=== PATIENT | female | born 1990 | race Hispanic/Latino ===

== ENCOUNTER 2020-11-19 08:39 | Emergency (ER) | payer SELFPAY ==
[2020-11-19 08:46] VITALS: BP 124/92; PULSE 62; RESP 18; TEMP 37; O2SAT 100
--- NOTE | 2020-11-19 08:47 | ED.ABDPAIN ---
HPI - Abdominal Pain General Chief Complaint: Abdominal Pain Stated Complaint: Abdominal Pain Time Seen by Provider: 11/19/20 08:47 Source: patient Mode of arrival: ambulatory Limitations: no limitations History of Present Illness HPI narrative: 30-year-old female presents to the [facility] with complaints of RLQ, suprapubic pain, nausea, headache since last night. Vomited 3 times since last night. Also reports diarrhea this morning. no treatment prior to arrival. Denies fevers and chest pain. Denies any past medical or surgical history Related Data Home Medications Medication Instructions Recorded Confirmed No Home Medications 11/19/20 11/19/20 Allergies Allergy/AdvReac Type Severity Reaction Status Date / Time No Known Allergies Allergy Verified 11/19/20 08:52 Review of Systems Review of Systems: All systems reviewed & are unremarkable except as noted in HPI and below Constitutional: Constitutional: Reports no additional constitutional complaints, Denies chills and Denies fever(s) Eyes: Eyes: Reports no additional eye complaints ENT: Reports system reviewed and no additional complaints, except as documented Cardiovascular: Cardiovascular: Reports no additional cardiovascular complaints Respiratory: Respiratory: Reports no additional respiratory complaints Gastrointestinal: Gastrointestinal: Reports as per HPI, Reports abdominal pain, Denies bloating, Denies constipation, Denies diarrhea, Reports nausea and Denies vomiting Genitourinary: Genitourinary: Reports no additional female genitourinary complaints, Denies dysuria and Denies flank pain Musculoskeletal: Musculoskeletal: Reports no additional musculoskeletal complaints, Denies back pain, Denies arthralgias and Denies joint swelling Integumentary/Breasts: Skin/Breast: Reports system reviewed and no additional complaints, except as docu Neurologic: Reports system reviewed and no additional complaints, except as documented Psychiatric: Psychiatric: Reports no additional psychiatric complaints Allergic/Immunologic: Allergic/Immunologic: Reports no additional allergic/immunologic complaints [facility] Past Medical History Medical History (Updated 11/19/20 @ 09:25 by Meseret Young) Well adult Social History Social History Gender identity (if verbalized by the patient): Female Comments Patient denies any past medical or surgical history. At the time of my signature, I reviewed and agree with the nursing past medical, surgical, social, and family history. There is no relevant family history pertinent to the patient complaint. Exam Const: General: healthy appearing, no acute distress and alert Nutritional Appearance: well nourished Orientation/consciousness: patient oriented x3 Limitations: no limitations HENMT: Head: normal to inspection Eyes: Pupils: Equal, round and reactive pupils present Neck: Neck: normal visual inspection, no lymphadenopathy and no meningeal signs Chest: Chest palpation & inspection: normal inspection of the chest Resp: Effort & Inspection: normal respiratory effort and no use of accessory muscles Auscultation: clear to auscultation bilaterally, no crackles, no rales, no rhonchi and no wheezes Cardio: Rate: regular rate Rhythm: regular rhythm GI: GI Palp: Yes Soft to palpation and Yes Tenderness to palpation present (GI) (Right lower, suprapubic, left lower) Auscultation: Hyperactive bowel sounds present : General: Yes no CVA tenderness Back/Spine/Pelvis: Back: no CVA tenderness Skin: General skin exam: normal color Rashes: no rashes Neuro: General: patient oriented x3, no meningeal signs and no focal motor deficits Speech: normal speech Gait exam (Neuro): Normal gait present Extrem: General: normal to inspection and no pedal edema Psych: Appearance: grossly normal and well kempt Mental Status: mental status grossly normal Affect: normal affect Attitu
== END 2020-11-19 09:09 | disposition short-term general hospital (02) ==
LOC: EXPCOLL 08:44
PROVIDERS: Emergency Provider Nurse Practitioner
DX: R10.31 Right lower quadrant pain (principal); R10.32 Left lower quadrant pain
CPT/HCPCS: 81003; 81025; 99212; G0463

== ENCOUNTER 2020-11-19 09:34 | Emergency (ER) | payer SELFPAY ==
--- NOTE | ~2020-11-19 | XR_ITS ---
EXAMINATION: XR chest 1V portable 11/19/2020 13:37 INDICATION: Cough and sore throat PROCEDURE: AP portable chest COMPARISON: No prior studies for comparison. FINDINGS: The lungs are clear. The cardiomediastinal silhouette is within normal limits. There are no pleural effusions. There is no pneumothorax suspected. IMPRESSION: 1: NO ACUTE CARDIOPULMONARY DISEASE. Reviewed, dictated and finalized at location A.
--- NOTE | ~2020-11-19 | CT_ITS ---
EXAMINATION: CT abdomen pelvis w con DATE: 11/19/2020 11:17 INDICATION: Right lower quadrant abdominal pain TECHNIQUE: Computed tomography (CT) of the abdomen and pelvis was performed with 100 mL Omnipaque-350 intravenous contrast. Automated exposure control and iterative reconstruction technique were employe d. The dose-length product was 492.41 mGy-cm. COMPARISON: None FINDINGS: Lung bases are clear. Heart size is normal. No pericardial or pleural effusion. Cholecystectomy clips at the gallbladder fossa. Liver, spleen, pancreas, left adrenal gland and bilateral kidneys are norm al. 9 mm right adrenal adenoma which in the absence of known history of malignancy is most likely an adenoma. Bowels including the appendix are normal. A couple nabothian cysts at the cervix, the larger measuring 1.4 cm . Anteverted uterus is otherwise unremarkable. Bladder and right adnexa are normal. 4.1 cm left adnexal cyst/follicle. Small amount of likely physiologic free fluid in the pelvis. No p athologically enlarged abdominal or pelvic lymphadenopathy. Bones are unremarkable. IMPRESSION: 1. 4.1 cm left adnexal cyst/follicle and small amount of likely physiologic free fluid in the pelvis. 2. No other acute intra-abdominal/pelvic process. Specifically the appendix is normal. Reviewed, dictated and finalized at location A. IMPRESSION: 1. 4.1 cm left adnexal cyst/follicle and small amount of likely physiologic to e fluid in the pelvis. 2. No other acute intra-abdominal/pelvic process. Specifically the appendix is normal.
[2020-11-19 10:22] VITALS: BP 124/68; PULSE 55; RESP 18; TEMP 36.7; O2SAT 99
--- NOTE | 2020-11-19 10:39 | ED.ABDPAIN ---
HPI - Abdominal Pain General Chief Complaint: Abdominal Pain Stated Complaint: RLQ ABD PAIN, N/V/D Time Seen by Provider: 11/19/20 10:36 Source: RN notes reviewed History of Present Illness HPI narrative: Patient presents to emergency department from urgent care for right lower quadrant bowel pain. Patient states symptoms began last night. Pain is located right lower quadrant and does not radiate states associated nausea vomiting diarrhea. States she does not take anything for the pain today she denies any fevers or chills chest pain shortness of breath or any other symptoms. Patient denies any chance of . Patient states she is also had a mild nonspecific cough as well as sore throat intermittent headaches for the past 1 week states she has had both of her Covid vaccinations reports mild rhinorrhea as well Related Data Allergies Allergy/AdvReac Type Severity Reaction Status Date / Time No Known Allergies Allergy Verified 11/19/20 10:45 Review of Systems Review of Systems: Narrative: Gen.: Denies fevers or chills ENT: Reports congestion Respiratory: Denies shortness of breath reports nonproductive cough CV: Denies chest pain or palpitations GI: See HPI denies burning, urgency, frequency or hematuria Musculoskeletal: Denies back pain or muscle pain Neuro: Denies numbness, tingling, weakness or focal weakness Skin: Denies rash Except as documented, all other systems reviewed and negative PMFSH Past Medical History Medical History (Updated 11/19/20 @ 14:03 by Paul Louis DO) Patient denies significant medical history Social History Social History (Updated 11/19/20 @ 10:40 by Paul Louis DO) Smoking status: Never smoker Exam Narrative: Exam Narrative: APPEARANCE: No acute distress, nontoxic, resting in bed HEENT: Normocephalic, atraumatic, OMM RESPIRATORY: No respiratory distress, clear to auscultation bilaterally with no rhonchi wheezing or rales CARDIOVASCULAR: RRR s murmur ABDOMINAL: Soft nondistended tender palpation right lower quadrant no tenderness in right upper quadrant, left upper quadrant left lower quadrant positive percussion tenderness right lower quadrant MUSCULOSKELETAl: Moves all extremities. No clubbing, cyanosis or edema. NEURO: Awake and alert. Following commands, speech normal, no focal deficits SKIN:: Warm, dry. Normal Color PSYCHIATRIC: Normal affect/mood Course Course Emergency Course: Patient states that they are feeling much better at this time. States abdominal pain has resolved. Repeat abdominal exam shows the patient's abdomen to be soft and nontender. Discussed with patient results of workup and diagnosis. Discussed need for follow-up with primary care physician, reasons to return to the emergency department in proper use of medication. Patient understands and agrees to current treatment plan. Discussed with patient although she has had Covid vaccinations will obtain Covid swab at this time Vital Signs Vital signs: Vital Signs Temperature 98.1 F 11/19/20 10:22 Pulse Rate 55 L 11/19/20 10:22 Respiratory Rate 18 11/19/20 10:22 Blood Pressure 124/68 11/19/20 10:22 Pulse Oximetry 99 11/19/20 10:22 Temperature 98.1 F 11/19/20 10:22 Pulse Rate 56 L 11/19/20 10:41 Respiratory Rate 18 11/19/20 10:41 Blood Pressure 123/72 11/19/20 10:41 Pulse Oximetry 100 11/19/20 10:41 MDM - Abdominal Pain MDM Narrative Medical decision making narrative: Patient's abdomen is soft without significant pain or signs of surgical abdomen on serial exams. Lab and x-ray evaluations are reviewed and patient is felt to be a reasonable candidate for outpatient management. Patient was instructed as to limitations of x-ray and laboratory evaluation and encouraged to return to ED or primary physician for repeat exam in 12 hours if continued or worsening pain Lab Data Result diagrams: 11/19/20 10:45 11/19/20 10:45 Labs: Lab Results
[2020-11-19 10:41] VITALS: BP 123/72; PULSE 56; RESP 18; O2SAT 100
[2020-11-19] MEDS: KETOROLAC 30 MG/ML VIAL (*BKC) IV PUSH (10:49)
[2020-11-19] MEDS: ONDANSETRON INJ 4 MG/2 ML VIAL IV PUSH (10:49)
[2020-11-19] MEDS: SODIUM CHLORIDE 0.9% IV 1,000 ML 999 ML IV CONT (10:49)
[2020-11-19 10:54] LABS: Basophils Percent Auto 0.6 % (0.2-1.2); Eosinophils Absolute Auto 0.1 K/mm3 (0-0.3); Eosinophils Percent Auto 1.7 % (0-4.4); Hematocrit 38.9 % (37.0-47.0); Hemoglobin 12.5 g/dL (12.0-15.0); Immature Granulocyte Absolute 0.01 K/mm3 (0.00-0.031); Immature Granulocyte Percent A 0.1 % (0-0.5); Lymphocytes Percent Auto 58.3 % (18.3-44.2); Mean Corpuscular HGB Conc 32.1 g/dl (32-36); Mean Corpuscular Hemoglobin 24.6 pg (26-34); Mean Corpuscular Volume 76.6 fl (80-100); Mean Platelet Volume 12.1 fl (7.4-10.4); Monocytes Absolute Auto 0.5 K/mm3 (0.1-0.6); Monocytes Percent Auto 6.3 % (2.6-8.5); Neutrophils Absolute Auto 2.4 K/mm3 (1.3-6.7); Platelet Count Result 271 k/mm3 (150-375); Red Blood Count 5.08 M/mm3 (4.2-5.4); Red Cell Distribution Width 15.5 % (11.5-14.5); White Blood Count 7.2 K/mm3 (4.5-10.0)
[2020-11-19 11:01] LABS: Alanine Aminotransferase 25 U/L (4-35); Albumin Level 4.5 g/dL (3.5-5.1); Alkaline Phosphatase 65 U/L (38-126); Anion Gap 8 mmol/L (8-16); Aspartate Amino Transferase 31 U/L (14-36); Bilirubin,Total 0.3 mg/dL (0.2-1.3); Blood Urea Nitrogen 10 mg/dL (7-17); Calcium 9.4 mg/dL (8.4-10.2); Carbon Dioxide 26 mmol/L (22-30); Chloride 105 mmol/L (98-107); Estimated Glomerular Filt Rate > 60; Glucose 89 mg/dL (65-110); Lipase 166 U/L (23-300); Potassium 3.7 mmol/L (3.4-5.0); Sodium 139 mmol/L (137-145)
[2020-11-19 11:10] LABS: Add Urine Microscopic? YES; Appearance Urine Cloudy (Clear); Bilirubin Urine Negative (Negative); Blood Urine Negative (Negative); Color Urine Yellow (Yellow); Glucose Urine UA Negative (Negative); Ketones Urine Negative (Negative); Leukocyte Esterase Ur Negative LEU/UL (Negative); Mucus Urine Few /lpf; Nitrate Urine Negative (Negative); Protein Urine Negative (Negative); RBC Urine 0-2 /hpf (0-2); Specific Grav Ur 1.023 (1.001-1.035); Squamous Epithelial Cell Urine Many /hpf (Few); Urobilinogen Urine Negative mg/dL (<2.0); WBC Urine 0-3 /hpf
--- NOTE | 2020-11-19 11:13 | PC.NURSE ---
Off floor to radiology
[2020-11-19 11:19] VITALS: TEMP 36.7
[2020-11-19 14:29] VITALS: BP 112/71; PULSE 53; RESP 16; O2SAT 97
[2020-11-20 15:39] LABS: SARS-CoV-2 RNA PCR Negative
== END 2020-11-19 14:31 | disposition home or self-care (01) ==
PROVIDERS: Emergency Provider Emergency Medicine
DX: N83.202 Unspecified ovarian cyst, left side (principal); J06.9 Acute upper respiratory infection, unspecified; Z20.822 Contact with and (suspected) exposure to COVID-19
CPT/HCPCS: 36415; 71045; 74177; 80053; 81001; 81025; 83690; 85025; 87081; 87880; 96361; 96374; 96375; 99284; C9803; J1885; J2405; J7030; Q9967; U0003; U0005

== ENCOUNTER 2024-02-22 05:40 | Emergency (ER) | payer MEDICAID, SELFPAY ==
[2024-02-22 05:45] VITALS: BP 139/81; PULSE 91; RESP 17; TEMP 36.6; O2SAT 100
[2024-02-22 05:58] LABS: BEDSIDEPREGUCG Positive (Negative)
[2024-02-22 05:58] LABS: Add Urine Microscopic? NO; Appearance Urine Clear (Clear); Bilirubin Urine Negative (Negative); Blood Urine Negative (Negative); Color Urine Yellow (Yellow); Glucose Urine UA Negative (Negative); Ketones Urine Trace mg/dL (Negative); Leukocyte Esterase Ur Negative LEU/UL (Negative); Nitrate Urine Negative (Negative); Protein Urine Negative (Negative); Specific Grav Ur 1.019 (1.001-1.035); Urobilinogen Urine 0.2 mg/dL (<2.0)
[2024-02-22 06:01] LABS: Basophils Percent Auto 0.5 % (0.2-1.2); Eosinophils Absolute Auto 0.2 K/mm3 (0-0.3); Hematocrit 39.6 % (37.0-47.0); Immature Granulocyte Absolute 0.09 K/mm3 (0.00-0.031); Immature Granulocyte Percent A 1.1 % (0-0.5); Lymphocytes Absolute Auto 2.79 K/mm3 (0.9-3.2); Lymphocytes Percent Auto 34.6 % (18.3-44.2); Mean Corpuscular HGB Conc 32.8 g/dl (32-36); Mean Corpuscular Hemoglobin 26.5 pg (26-34); Mean Corpuscular Volume 80.7 fl (80-100); Mean Platelet Volume 11.6 fl (7.4-10.4); Monocytes Absolute Auto 0.5 K/mm3 (0.1-0.6); Monocytes Percent Auto 6.2 % (2.6-8.5); Neutrophils Absolute Auto 4.5 K/mm3 (1.3-6.7); Neutrophils Percent Auto 55.6 % (45.5-73.1); Platelet Count Result 298 k/mm3 (150-375); Red Blood Count 4.91 M/mm3 (4.2-5.4); Red Cell Distribution Width 15.8 % (11.5-14.5); White Blood Count 8.1 K/mm3 (4.5-10.0)
[2024-02-22 06:08] VITALS: BP 120/48; PULSE 88; RESP 16; O2SAT 100
[2024-02-22 06:11] LABS: Alanine Aminotransferase 23 U/L (6-35); Albumin Level 4.4 g/dL (3.5-5.1); Alkaline Phosphatase 40 U/L (38-126); Anion Gap 8 mmol/L (4-12); Aspartate Amino Transferase 35 U/L (14-36); Bilirubin,Total 0.6 mg/dL (0.2-1.3); Blood Urea Nitrogen 6 mg/dL (7-17); Calcium 9.3 mg/dL (8.4-10.2); Carbon Dioxide 23 mmol/L (22-30); Chloride 103 mmol/L (98-107); Estimated CRCL calculation 164 ml/min; Estimated Glomerular Filt Rate > 60; Glucose 118 mg/dL (65-110); Lipase 208 U/L (23-300); Potassium 4.5 mmol/L (3.4-5.0); Sodium 134 mmol/L (137-145)
[2024-02-22 07:15] VITALS: BP 112/80; PULSE 80; RESP 18; O2SAT 99
[2024-02-22] MEDS: LACTATED RINGERS 1,000 ML 999 ML IV CONT (07:46)
[2024-02-22] MEDS: ACETAMINOPHEN 500 MG TABLET 1000 MG PO (07:46)
[2024-02-22] MEDS: ONDANSETRON INJ 4 MG/2 ML VIAL IV PUSH (07:46)
--- NOTE | 2024-02-22 07:51 | ED_ITS ---
HPI - General Chief complaint: Abdominal Pain Stated complaint: 19 weeks , back pain, stomach pain, devries Time Seen by Provider: 02/22/24 06:02 Source: patient and RN notes reviewed Mode of arrival: ambulatory Limitations: no limitations History of Present Illness HPI Narrative: This is a 33 year old 19weeks 4 days GA who presents for evaluation of abdominal pain. PAtient states yesterday she developed lower abdominal pain, back pain and headache. She took tylenol last night around 8 pm. She reports her pain is sharp and intermittent. She has had nausea and intermittent vomiting with her . She denies vaginal bleeding, fever, chills. She does reports runny nose and congestion. Related Data Allergies Allergy/AdvReac Type Severity Reaction Status Date / Time No Known Allergies Allergy Verified 02/22/24 05:57 Review of Systems Review of Systems: All systems reviewed & are unremarkable except as noted in HPI and below PMFSH Past Medical History Medical History (Updated 02/22/24 @ 08:36 by Dee Villanueva MD) History of pre-eclampsia Patient denies significant medical history Well adult Social History Social History Smoking status: Never smoker Gender identity (if verbalized by the patient): Female Exam Const: General: no acute distress and alert Nutritional Appearance: well nourished Orientation/consciousness: patient oriented x3 HENMT: Head: normal to inspection Mouth: Yes Normal oral and palatal mucosa present, Yes lip normal and Yes moist mucous membranes Eyes: Pupils: Equal, round and reactive pupils present EOM: EOMs intact bilaterally Chest: Chest palpation & inspection: normal inspection of the chest Cardio: Rate: regular rate Rhythm: regular rhythm GI: GI Palp: Yes Soft to palpation, Yes Tenderness to palpation present (GI) (suprapubic), No Guarding due to palpation present (GI) and No Rigid due to palpation Auscultation: normal bowel sounds Back/Spine/Pelvis: Back: no CVA tenderness Skin: General skin exam: normal color Rashes: no rashes Wounds: no wounds Neuro: General: patient oriented x3, moves all extremities and CN's II-XI intact bilaterally Extrem: General: normal to inspection, no clubbing, cyanosis or edema and no pedal edema Psych: Mental Status: mental status grossly normal Affect: normal affect Attitude: cooperative Course Reevaluation(s) Reevaluation #1: PAtient states she feels better. I discussed labs are unremarkable other than dehydration. She was given tylenol,zofran and 1 liter L bolus. Date: 02/22/24 Time: 08:30 Consultations Consultation #1: I spoke with Dr. renteria over the phone. I discussed patient symptms, likely viral. She states patient can be prescribed zofran and follow up at her already scheduled appointment next week. Date: 02/22/24 Time: 08:34 Vital Signs Vital signs: Vital Signs Temperature 97.8 F 02/22/24 05:45 Pulse Rate 91 02/22/24 05:45 Respiratory Rate 17 02/22/24 05:45 Blood Pressure 139/81 02/22/24 05:45 Pulse Oximetry 100 02/22/24 05:45 Temperature 97.8 F 02/22/24 05:45 Pulse Rate 82 02/22/24 08:15 Respiratory Rate 19 02/22/24 08:15 Blood Pressure 115/87 02/22/24 08:15 Pulse Oximetry 100 02/22/24 08:15 MDM - OB/Uterine Contractions Differential Diagnosis Differential diagnosis: Likely premature labor and other (UTI, viral illness, round ligament pain, dehydration) Lab Data Attestation: I reviewed the patient's lab results. 02/22/24 05:51 02/22/24 05:51 Labs: Lab Results 02/22/24 02/22/24 02/22/24 Range/Units 05:51 05:55 07:38 WBC 8.1 (4.5-10.0) K/mm3 RBC 4.91 (4.2-5.4) M/mm3 Hgb 13.0 (12.0-15.0) g/dL Hct 39.6 (37.0-47.0) % MCV 80.7 (80-100) fl MCH 26.5 (26-34) pg MCHC 32.8 (32-36) g/dl RDW 15.8 H (11.5-14.5) % Plt Count 298 (150-375) k/mm3 MPV 11.6 H (7.4-10.4) fl Immature Gran % (Auto) 1.1 H (0-0.5) % Neut % (Auto) 55.6 (45.5-73.1) % Lymph % (Auto) 34.6 (18.3-44.2) % Emmons % (Auto) 6.2 (2.6-8.5) % Eos % (Auto) 2.0 (0-4.4) % Baso % (Auto) 0.5 (0.2-1.2) % Lymph # (Auto) 2.79 (0.9-3.2) K/mm3 Emmons # (Auto) 0.5 (0.1-0.6) K/mm3 Eos # (Auto) 0.2 (0-0.3) K/mm3 Baso # (Auto) 0.0 (0.0-0.1) K/mm3 Abs Immat Gran (auto) 0.09 H (0.00-0.031) K/mm3 Absolute Neuts (auto) 4.5 (1.3-6.7) K/mm3 Absolute Nucleated RBC 0.000 (0.0-0.012) K/mm3 Nucleated RBC % 0.0 (0.0-0.2) % Sodium 134 L (137-145) mmol/L Potassium 4.5 (3.4-5.0) mmol/L Chloride 103 (98-107) mmol/L Carbon Dioxide 23 (22-30) mmol/L Anion Gap 8 (4-12) mmol/L BUN 6 L (7-17) mg/dL Creatinine 0.40 L (0.7-1.0) mg/dL Estim Creat Clear Calc 164 ml/min Estimated GFR > 60 (59 - ) Glucose 118 H (65-110) mg/dL Calcium 9.3 (8.4-10.2) mg/dL Total Bilirubin 0.6 (0.2-1.3) mg/dL AST 35 (14-36) U/L ALT 23 (6-35) U/L Alkaline Phosphatase 40 (38-126) U/L Total Protein 9.0 H (6.3-8.2) g/dL Albumin 4.4 (3.5-5.1) g/dL Lipase 208 (23-300) U/L Urine Color Yellow (Yellow) Urine Appearance Clear (Clear) Urine pH 6.0 (5.0-9.0) Ur Specific Sunburst 1.019 (1.001-1.035) Urine Protein Negative (Negative) mg/dL Urine Glucose (UA) Negative (Negative) mg/dL Urine Ketones Trace H (Negative) mg/dL Ur Blood (Man) Negative (Negative) Urine Nitrate Negative (Negative) Urine Bilirubin Negative (Negative) Urine Urobilinogen 0.2 (<2.0) mg/dL Leukocyte Esterase Rfl Negative (Negative) KAY/UL POC Urine HCG, Qual Positive (Negative) Influenza A (RT-PCR) Negative (Negative) Influenza B (RT-PCR) Negative (Negative) SARS-CoV-2 RNA (RT-PCR) Negative (Negative) Discharge Plan Discharge Clinical Impression: Dehydration during , Abdominal pain during Patient Disposition: Home, Self-Care Condition: Improved Instructions: Antibiotic Form, Abdominal Pain in (ED) Additional Instructions: Stay hydrated. Take tylenol as needed every 6 hours. If you have any additional questions you can rosalba your OBGYn. Follow up at your already scheduled appointment. Prescriptions: New ondansetron 4 mg tablet,disintegrating 4 mg PO Q6H PRN (Reason: nausea and vomiting) Qty: 14 0RF No Action ibuprofen [IBU] 600 mg tablet 600 mg PO Q6H PRN (Reason: pain) Qty: 20 0RF Follow-up/Referrals: Hayley Renteria MD [Physician] - PHYSICIAN,SURVEY MANAGER [Non-Staff] -
[2024-02-22 08:15] VITALS: BP 115/87; PULSE 82; RESP 19; O2SAT 100
[2024-02-22 08:24] LABS: Influenza A QL RT-PCR Negative (Negative); Influenza B QL RT-PCR Negative (Negative); SARS-CoV-2 RNA PCR Negative (Negative)
== END 2024-02-22 08:56 | disposition home or self-care (01) ==
PROVIDERS: Student in an Organized Health Care Education/Training Program; Emergency Provider General Practice
DX: O99.282 Endocrine, nutritional and metabolic diseases complicating pregnancy, second trimester (principal); E86.0 Dehydration; Z3A.19 19 weeks gestation of pregnancy; R10.30 Lower abdominal pain, unspecified; Z20.822 Contact with and (suspected) exposure to COVID-19
CPT/HCPCS: 36415; 80053; 81003; 81025; 83690; 85025; 87636; 96361; 96374; 99284; A9270; J2405; J7120

== ENCOUNTER 2024-07-14 05:02 | Inpatient (IN) | payer OTHER, SELFPAY ==
[2024-07-14] VITALS (78 sets, daily range): BP systolic 95–151; BP diastolic 38–119; PULSE 59–152; RESP 14–20; TEMP 36.3–37.4; O2SAT 81–100; BMI 35.2
--- OUTSIDE RECORDS SUMMARY | 2024-07-14 02:14 | XMS_ITS | Clinical Summary ---
Author Organization [facility] Index Address [address] [place] [address] Care Team Providers Care Voice Instructor Name Role Phone Unavailable Primary Care Provider Unavailabl e Source Comments [facility] Index,non-owned Affiliates and Associated Physician Practices is amultiple site organization consisting of ambulatory clinics and hospital sitesin [place], [place], [place] and [place]. This disclosure is being madepursuant to the Care Everywhere program and may not contain all information available regarding this patient. Last updated 18.[facility] Allergies No known active allergies Medications * Be aware that medications may not be up to date on this document. Alwaysverify current medications with the patient. Medication Sig Dispensed Refills Start Date End Date Status Vit-Fe Fumarate-FA ( VITAMIN) 28-0.8 MG tablet Take 1 tablet by mouth once daily Active ascorbic acid (VITAMIN C) 250 MG tabletIndications:I jane Deficiency Anemia Take 2 tablets by mouth once daily Reasons: Anemia From Inadequate Iron in the Body 60 tablet 5 07/07/2018 Active Riboflavin 400 MGIndications:Preve ntion of Headaches Take 1 tablet by mouth once daily Reasons: Headache Prophylaxis 30 tablet 5 07/07/2018 Active Additional Information Patient not taking.Reported on 07/28/2018 pyridoxine (VITAMIN B-6) 25 MG tabletIndications:N ausea and/or Vomiting in Take 2 tablets by mouth once daily Reasons: Nausea and Vomiting in 30 tablet 5 07/07/2018 Active Active Problems Problem Noted Date Diagnosed Date Maternal anemia in , antepartum 019 Overview (07/28/2018): H&H (06/08/2018) 7.8/26.0, MCV 71.6 H&H (07/07/2018) 8.9/28.8, MCV 69.1/platelets 369 H&H (07/25/2018): 8.2/28.3 MCV: 71.1/platelets 373 Iron 16 [40-190]/TIBC 658 [250-450]/saturation 2 [11-50] /transferrin> 477 [188/341] Has been using oral iron twice daily; along with Vitamin C Estimated iron deficit 1000 mg Assessment & Plan (07/28/2018 3:39 PM CDT): 07/28/2018: Setting up Venofer infusions at infusion center at [facility]; ordering today; patient aware [facility] will call to schedule these infusions. Assessment & Plan (07/07/2018 6:47 PM CDT): Estimated iron deficit 12 15 mg Plan: Would recommend 1000 mg IV iron replacement Prescribed vitamin-C for oral iron absorption Repeat CBC 2 weeks or later after iron infusion Social History Tobacco Use Types Packs/Day Years Used Date Smoking Tobacco: Never Smokeless Tobacco: Never Alcohol Use Standard Drinks/Week Comments No 0 (1 standard drink = 0.6 oz pur e alcohol) Sex and Gender Information Value Date Recorded Sex Assigned at Not on file Gender Identity Not on file Sexual Orientation Not on file Last Filed Vital Signs Vital Sign Reading Time Taken Comments Blood Pressure 116/65 07/28/2018 2:09 PM CDT Pulse 78 07/28/2018 2:09 PM CDT Temperature - - Respiratory Rate - - Oxygen Saturation - - Inhaled Oxygen Concentration - - Weight 74.8 kg (165 lb) 07/28/2018 2:09 PM CDT Height 152.4 cm (5') 07/07/2018 2:47 PM CDT Body Mass Index 32.22 07/07/2018 2:47 PM CDT Plan of Treatment Health Maintenance Due Date Last Done Comments PAP SMEAR 1988 HIV SCREENING 10/29/2003 HEPATITIS C SCREENING 10/24/2006 DTAP/TDAP/TD VACCINES (1 - Tdap) 10/29/2007 HEPATITIS B VACCINE (1 of 3 - 19+ 3-dose series) 10/29/2007 COVID-19 VACCINE (2023-2 5 season) 2023 INFLUENZA VACCINE (#1) 2023 DEPRESSION SCREENING 04/27/2024 ZOSTER VACCINE (1 of 2) 2038 HIB VACCINE Aged Out No longer eligi ble based on patient's age to complete this topic HPV VACCINE Aged Out No longer eligi ble based on patient's age to complete this topic MENINGOCOCCAL (Group B) VACC INE SHARED DECISION-MAKING Aged Out No longer eligibl e based on patient's age to complete this topic MENINGOCOCCAL GROUPS A/C/Y/W VACCINE Aged Out No longer eligible b ased on patient's age to complete this topic PNEUMOCOCCAL VACCINE Aged Out No long er eligible based on patient's age to complete this topic
--- OUTSIDE RECORDS SUMMARY | 2024-07-14 02:14 | XMS_ITS | Encounter Summary ---
Author Organization [facility] Address [address] [place] [address] Care Team Providers Care Lamp Shade Sewer Name Role Phone Unavailable Primary Care Provider Unavailabl e Encounter Details Date Type Department Care Team (Late st Contact Info) Description 07/13/2024 External Device Data [facility] ABSTRACTION Provider, Abstract NO ADDRESS ON FILE Social History Tobacco Use Types Packs/Day Years Used Date Smoking Tobacco: Never Assessed Comments Unknown Sex and Gender Information Value Date Recorded Sex Assigned at Not on file Legal Sex Female 7:42 AM CDT Gender Identity Not on file Sexual Orientation Not on file documented as of this encounter Plan of Treatment Not on file documented as of this encounter Visit Diagnoses Not on filedocumented in this encounter
--- OUTSIDE RECORDS SUMMARY | 2024-07-14 02:14 | XMS_ITS | Clinical Summary ---
Author Organization [facility] Address [address] [place] [phone] Phone Care Team Providers Care Auto Machinist Name Role Phone Unavailable Primary Care Provider Unavailabl e Encounters Date Type Department Care Team Description 07/13/2024 External Device Data STL ABSTRACTION Provider, Abstract 07/13/2024 External Device Data STL ABSTRACTION Provider, Abstract 07/02/2024 External Device Data STL ABSTRACTION Provider, Abstract 07/01/2024 External Device Data STL ABSTRACTION Provider, Abstract 06/28/2024 External Device Data STL ABSTRACTION Provider, Abstract 06/27/2024 9:23 AM CRACKER OFF - 06/27/2024 11:59 PM CRACKER OFF Hospital Encounter [facility] 2022 [address] [place] [phone] Hayley Joseph MD Discharge Disposition: Home or Self Care 06/14/2024 External Device Data STL ABSTRACTION Provider, Abstract 05/30/2024 3:02 PM CRACKER OFF - 05/30/2024 11:59 PM CRACKER OFF Hospital Encounter [facility] Charli Castanon [address] [place] [phone] Eber Ramirez MD Discharge Disposition: Home or Self Care 05/19/2024 External Device Data STL ABSTRACTION Provider, Abstract 05/18/2024 External Device Data STL ABSTRACTION Provider, Abstract 05/17/2024 External Device Data STL ABSTRACTION Provider, Abstract 05/10/2024 External Device Data STL ABSTRACTION Provider, Abstract 05/03/2024 3:00 PM CRACKER OFF - 05/03/2024 11:59 PM CRACKER OFF Hospital Encounter [facility] 2022 [address]li Castanon [address] [place] [phone] Eber Ramirez MD Discharge Disposition: Home or Self Care from Last 3 Months Social History Tobacco Use Types Packs/Day Years Used Date Smoking Tobacco: Never Assessed Comments Unknown Sex and Gender Information Value Date Recorded Sex Assigned at Not on file Legal Sex Female 7:42 AM CDT Gender Identity Not on file Sexual Orientation Not on file Plan of Treatment Health Maintenance Due Date Last Done Comments Pre-Diabetes and Diabetes Screening 1988 DTAP/TDAP/TD VACCINES (1 - Tdap) 10/29/2007 HEPATITIS B VACCINES (1 of 3 - 19+ 3-dose series) 10/29/2007 Preventative Visit-Managed Medicaid 10/29/2007 PAP SMEAR 2009 CERVICAL CANCER SCREENING 2018 HPV/Cotest 2018 PAP SMEAR 2018 INFLUENZA VACCINE (#1) 2023 HPV VACCINES Aged Out No longer eligi ble based on patient's age to complete this topic Procedures Procedure Name Priority Date/Time Associated Diagnosis Comments US OB FOLLOW UP PER FETUS Routine 06/27/2024 9:42 AM CRACKER OFF AMA (advanced maternal age) multigravida 35+, third trimester History of Maternal obesity syndrome, third trimester Insulin controlled gestational diabetes mellitus (GDM) in third trimester US OB FOLLOW UP PER FETUS Routine 05/30/2024 3:41 PM CRACKER OFF Insulin controlled gestational diabetes mellitus (GDM) during , antepartum Multigravida of advanced maternal age in second trimester US OB FOLLOW UP PER FETUS Routine 05/03/2024 3:27 PM CRACKER OFF Insulin controlled gestational diabetes mellitus (GDM) during , antepartum Multigravida of advanced maternal age in second trimester from Last 3 Months Results * US OB FOLLOW UP PER FETUS (06/27/2024 9:42 AM CRACKER OFF) Only the most recent of3 resultswithin the time period is included. Anatomical Region Laterality Modality Pelvis Ultrasound 06/27/2024 9:26 AM CRACKER OFF Narrative 06/27/2024 9:48 AM CRACKER OFF STL FOLLOW UP ----- Pat. Name: MINGO BOB Study Date: 06/27/2024 9:26am Pat. NO: [id number] Referring MD: HAYLEY JOSEPH MD Site: [facility] Rifler: Meredith Linda RDMS : 1990 Age: 33 ----- INDICATION ----- Screening Follow-Up Advanced Maternal Age (AMA), Multigravida Gestational Diabetes, Insulin Controlled History of PTL/PTD in Previous , Currently Maternal Care for Low Transverse Scar from Previous Delivery (Previous ) Antepartum Complications, Other Specified Maternal Obesity (BMI<40) Complicating CODING ----- Diagnoses Z3A.36: Weeks of gestation O99.891: Other specified diseases and conditions complicating O09.213: Supervision of with history of pre-term labor O34.211: Maternal care for low transverse scar from previous delivery O24.414: Gestational diabetes mellitus in , insulin controlled O09.523: Supervision of elderly multigravida O99.213: Obesity complicating Z36.2: Encounter for other screening follow-up Procedures 30709: Ultrasound, uterus, real time with image documentation, follow up, transabdominal approach per fetus HISTORY ----- OB History 3. Para 2 T1P1L2 MATERNAL ASSESSMENT ----- Physical Exam Initial weight 77 kg, 170 lb. Initial BMI 38.11 kg/m METHOD ----- Transabdominal ultrasound examination ----- Jeffery . Number of fetuses: 1 DATING ----- GA by prior assessment 36 w + 5 d WILLIAM by prior assessment: 07/20/2024 Ultrasound examination on: 06/27/2024 GA by U/S based upon: AC, BPD, EFW, Femur, HC GA by U/S 34 w + 6 d WILLIAM by U/S: 08/02/2024 Method of dating: Restore dating from previous exam Assigned: based on stated WILLIAM, selected on 03/03/2024 Assigned GA 36 w + 5 d Assigned WILLIAM: 07/20/2024 BIOMETRY ----- BPD 83.0 mm 33w 3d 1% Hadlock OFD 110.4 mm 36w 5d 50% Shivani HC 309.4 mm 34w 4d 1% Hadlock AC 325.5 mm 36w 3d 56% Hadlock Femur 66.6 mm 34w 2d 4% Hadlock HC / AC 0.95 15% Nicolaides Weight Calculation: EFW 2,658 g 35w 2d 22% Hadlock EFW (lb,oz) 5 lb 14 oz EFW by Hadlock ([id number]) Head / Face / Neck Biometry: Soa Engineer 3.7 mm Extremities / Bony Struc Biometry: FL / BPD 0.80 FL / HC 0.22 FL / AC 0.20 GENERAL EVALUATION ----- Cardiac activity present. FHR 149 bpm. movements: present. Presentation: cephalic Placenta: Placental site: posterior Umbilical cord: Cord vessels: 3 vessel cord. Amniotic fluid: Amount of AF: normal amount. MVP 4.3 cm. ALEN 11.7 cm. Q1 4.3 cm, Q2 1.5 cm, Q3 3.2 cm, Q4 2.7 cm ANATOMY ----- The following structures appear normal: Head / Neck Cranium. Lateral ventricles. Choroid plexus. Midline falx. Cavum septi pellucidi. Cerebellum. Cisterna magna. Heart / Thorax 4-chamber view. RVOT view. LVOT view. Diaphragm. Abdomen Stomach. Kidneys. Bladder. GROWTH OVERVIEW ----- Exam date GA BPD (mm) HC (mm) AC (mm) FL (mm) HL (mm) EFW (g) 03/03/2024 20w 1d 46.1 41% 170.8 22% 144.0 31% 33.7 58% 29.2 31% 330 41% 03/31/2024 24w 1d 57.4 23% 215.1 14% 188.8 26% 42.0 23% 615 22% 05/03/2024 28w 6d 69.0 10% 263.4 14% 256.0 71% 52.8 16% 1,313 41% 05/30/2024 32w 5d 75.5 2% 285.6 2% 289.8 59% 59.8 7% 1,889 22% 06/27/2024 36w 5d 83.0 1% 309.4 1% 325.5 56% 66.6 4% 2,658 22% COMMENT ----- Patient's name and date of were verified by the firewood cutter prior to the exam IMPRESSION ----- 1. Single living fetus with a gestational age of 36w 5d, based on the reported clinical dates. 2. Current growth parameters are consistent with the stated EDC. The size is appropriate for gestational age at 22% percentile (2658 g). 3. Unremarkable limited anatomy noted. A detailed anatomy cannot be performed secondary to advanced gestational age. However, there are no gross structural abnormalities noted. 4. The amniotic fluid is normal for gestational age (MVP:4.3 cm , ALEN:11.7 cm ). 5. posterior placenta. No previa/not low-lying. 6. cephalic presentation. Recommendations: 1. Follow up sonogram as clinically indicated 2. testing through primary OB Thank you for allowing us to participate in the care of this patient. Procedure Note Tao Brennan MD - 06/27/2024 STL FOLLOW UP ----- Pat. Name:Alexandra BOB Date:06/27/2024 9:26am Pat. NO: [id number] MD:HAYLEY JOSEPH MD [facility]Meredith Linda RDMS :1990Age:33 ----- INDICATION ----- Screening Follow-Up Advanced Maternal Age (AMA), Multigravida Gestational Diabetes, Insulin Controlled History of PTL/PTD in Previous , Currently Maternal Care for Low Transverse Scar from Previous Delivery (Previous ) Antepartum Complications, Other Specified Maternal Obesity (BMI<40) Complicating CODING ----- Diagnoses Z3A.36: Weeks of gestation O99.891: Other specified diseases and conditionscomplicating O09.213: Supervision of with history ofpre-term labor O34.211: Maternal care for low transverse scarfrom previous delivery O24.414: Gestational diabetes mellitus inpregnancy, insulin controlled O09.523: Supervision of elderly multigravida O99.213: Obesity complicating Z36.2: Encounter for other screeningfollow-up Procedures [id number]: Ultrasound, uterus, real time withimage documentation, follow up, transabdominal approach per fetus HISTORY ----- OB History 3. Para 2 T1P1L2 MATERNAL ASSESSMENT ----- Physical Exam Initial weight 77 kg, 170 lb. Initial BMI 38.11kg/m METHOD ----- Transabdominal ultrasound examination ----- Jeffery . Number of fetuses: 1 DATING ----- GA by prior [id number] w + 5 d WILLIAM by prior assessment:07/20/2024 Ultrasound examination on:06/27/2024 GA by U/S based upon:AC, BPD, EFW, Femur, HC GA by U/S34 w + 6 d WILLIAM by U/S:08/02/2024 Method of dating:Restore dating from previous exam Assigned:based on stated WILLIAM, selected on 03/03/2024 Assigned GA36 w + 5 d Assigned WILLIAM:07/20/2024 BIOMETRY ----- BPD 83.0 mm 33w 3d 1%Hadlock OFD 110.4 mm 36w 5d 50%Shivani HC 309.4 mm 34w 4d 1%Hadlock AC 325.5 mm 36w 3d 56%Hadlock Femur 66.6 mm 34w 2d 4%Hadlock HC / AC 0.95 15%Nicolaides Weight Calculation: EFW 2,658 g 35w 2d22% Hadlock EFW (lb,oz) 5 lb 14 oz EFW by Hadlock ([id number]) Head / Face / Neck Biometry: Soa Engineer 3.7mm Extremities / Bony Struc Biometry: FL / BPD 0.80 FL / HC 0.22 FL / AC 0.20 GENERAL EVALUATION ----- Cardiac activity present. FHR 149 bpm. movements: present.Presentation: cephalic Placenta: Placental site: posterior Umbilical cord: Cord vessels: 3 vessel cord. Amniotic fluid: Amount of AF: normal amount. MVP 4.3 cm. ALEN 11.7 cm. Q14.3 cm, Q2 1.5 cm, Q3 3.2 cm, Q4 2.7 cm ANATOMY ----- The following structures appear normal: Head / Neck Cranium. Lateral ventricles. Choroid plexus.Midline falx. Cavum septi pellucidi. Cerebellum. Cisterna magna. Heart / Thorax 4-chamber view. RVOT view. LVOT view. Diaphragm. Abdomen Stomach. Kidneys. Bladder. GROWTH OVERVIEW ----- Exam date GA BPD (mm) HC (mm) AC (mm) FL(mm) HL (mm) EFW (g) 03/03/2024 20w 1d 46.1 41% 170.8 22% 144.0 31%33.7 58% 29.2 31% 330 41% 03/31/2024 24w 1d 57.4 23% 215.1 14% 188.8 26%42.0 23% 615 22% 05/03/2024 28w 6d 69.0 10% 263.4 14% 256.0 71%52.8 16% 1,313 41% 05/30/2024 32w 5d 75.5 2% 285.6 2% 289.8 59%59.8 7% 889 22% 06/27/2024 36w 5d 83.0 1% 309.4 1% 325.5 56%66.6 4% 2,658 22% COMMENT ----- Patient's name and date of were verified by the firewood cutter prior tothe exam IMPRESSION ----- 1. Single living fetus with a gestational age of 36w 5d, based on thereported clinical dates. 2. Current growth parameters are consistent with the stated EDC. The fetalsize is appropriate for gestational age at 22% percentile (2658 g). 3. Unremarkable limited anatomy noted. A detailed anatomycannot be performed secondary to advanced gestational age. However, there are no gross structural abnormalities noted. 4. The amniotic fluid is normal for gestational age (MVP:4.3 cm , ALEN:11.7cm ). 5. posterior placenta. No previa/not low-lying. 6. cephalic presentation. Recommendations: 1. Follow up sonogram as clinically indicated 2. testing through primary OB Thank you for allowing us to participate in the care of this patient. us Hayley Joseph MD ORDERABLES Final Res ult from Last 3 Months Insurance [employer] [place]
--- OUTSIDE RECORDS SUMMARY | 2024-07-14 02:14 | XMS_ITS | Encounter Summary ---
Author Organization [facility] Address [address] [place] [address] Care Team Providers Care Spool Cleaner Hand Name Role Phone Unavailable Primary Care Provider [...]
[2024-07-14 06:00] LABS: Basophils Percent Auto 0.4 % (0.2-1.2); Eosinophils Absolute Auto 0.1 K/mm3 (0-0.3); Eosinophils Percent Auto 1.2 % (0-4.4); Hematocrit 33.7 % (37.0-47.0); Hemoglobin 10.8 g/dL (12.0-15.0); Immature Granulocyte Absolute 0.02 K/mm3 (0.00-0.031); Immature Granulocyte Percent A 0.4 % (0-0.5); Lymphocytes Absolute Auto 2.17 K/mm3 (0.9-3.2); Lymphocytes Percent Auto 41.7 % (18.3-44.2); Mean Corpuscular Hemoglobin 25.4 pg (26-34); Mean Corpuscular Volume 79.3 fl (80-100); Monocytes Absolute Auto 0.5 K/mm3 (0.1-0.6); Neutrophils Absolute Auto 2.4 K/mm3 (1.3-6.7); Neutrophils Percent Auto 46.3 % (45.5-73.1); Platelet Count Result 310 k/mm3 (150-375); Red Blood Count 4.25 M/mm3 (4.2-5.4); Red Cell Distribution Width 15.4 % (11.5-14.5); White Blood Count 5.2 K/mm3 (4.5-10.0)
[2024-07-14] MEDS: LACTATED RINGERS 1,000 ML 125 ML IV CONT ×2 (06:05→07:01)
[2024-07-14 06:09] LABS: Alanine Aminotransferase 20 U/L (6-35); Albumin Level 3.7 g/dL (3.5-5.1); Alkaline Phosphatase 127 U/L (38-126); Anion Gap 11 mmol/L (4-12); Aspartate Amino Transferase 26 U/L (14-36); Bilirubin,Total 0.4 mg/dL (0.2-1.3); Blood Urea Nitrogen 11 mg/dL (7-17); Calcium 8.9 mg/dL (8.4-10.2); Carbon Dioxide 18 mmol/L (22-30); Chloride 108 mmol/L (98-107); Estimated CRCL calculation 134 ml/min; Estimated Glomerular Filt Rate > 60; Glucose 123 mg/dL (65-110); Potassium 4.1 mmol/L (3.4-5.0); Sodium 137 mmol/L (137-145)
[2024-07-14] MEDS: ACETAMINOPHEN 500 MG TABLET 1000 MG PO (06:13)
[2024-07-14 06:40] LABS: Glucose Point of Care 109 mg/dl (65-105)
--- NOTE | 2024-07-14 06:40 | PC.NURSE ---
Dr. Joseph notified of pt's blood glucose level of 109. No new orders received at this time.
[2024-07-14 06:49] LABS: HIV 1/2 Ab P24 Ag Result Negative (Negative)
--- NOTE | 2024-07-14 06:53 | WPDANESEPPF ---
Anes - Initial Pre Proc Eval Procedure: Operation Date: 07/14/24 07:30 Proposed Procedures p Repeat Section with Bilateral Salpingectomy - Hayley Joseph MD Date/Time: 07/14/24 06:53 Surgeon: Hayley Joseph MD Pre Op Diagnosis: Patient Data Age: 33 Gender: F Height: 1.52 m Weight: 81.8 kg Last Vital Signs Pulse 85 07/14/24 06:46 BP 131/101 H 07/14/24 06:46 Pulse Ox 98 07/14/24 06:52 Allergies Allergy/AdvReac Type Severity Reaction Status Date / Time No Known Allergies Allergy Verified 06/20/24 14:00 Home Medications ?Medication ?Instructions ?Recorded ?Confirmed ?Type insulin NPH isoph U-100 human 100 46 unit subcut QPM 06/20/24 06/20/24 History unit/mL subcutaneous suspension (Novolin N NPH U-100 Insulin isophane) vit no.95-ferrous 1 tablet PO DAILY 06/20/24 06/20/24 History fumarate 28 mg-folic acid 800 mcg tablet () Laboratory Tests 07/14/24 07/14/24 05:33 06:35 WBC 5.2 K/mm3 (4.5-10.0) RBC 4.25 M/mm3 (4.2-5.4) Hgb 10.8 L g/dL (12.0-15.0) Hct 33.7 L % (37.0-47.0) MCV 79.3 L fl (80-100) MCH 25.4 L pg (26-34) MCHC 32.0 g/dl (32-36) RDW 15.4 H % (11.5-14.5) Plt Count 310 k/mm3 (150-375) MPV 12.0 H fl (7.4-10.4) Immature Gran % (Auto) 0.4 % (0-0.5) Neut % (Auto) 46.3 % (45.5-73.1) Lymph % (Auto) 41.7 % (18.3-44.2) Pleasants % (Auto) 10.0 H % (2.6-8.5) Eos % (Auto) 1.2 % (0-4.4) Baso % (Auto) 0.4 % (0.2-1.2) Lymph # (Auto) 2.17 K/mm3 (0.9-3.2) Pleasants # (Auto) 0.5 K/mm3 (0.1-0.6) Eos # (Auto) 0.1 K/mm3 (0-0.3) Baso # (Auto) 0.0 K/mm3 (0.0-0.1) Abs Immat Gran (auto) 0.02 K/mm3 (0.00-0.031) Absolute Neuts (auto) 2.4 K/mm3 (1.3-6.7) Absolute Nucleated RBC 0.000 K/mm3 (0.0-0.012) Nucleated RBC % 0.0 % (0.0-0.2) Sodium 137 mmol/L (137-145) Potassium 4.1 mmol/L (3.4-5.0) Chloride 108 H mmol/L (98-107) Carbon Dioxide 18 L mmol/L (22-30) Anion Gap 11 mmol/L (4-12) BUN 11 D mg/dL (7-17) Creatinine 0.46 L mg/dL (0.7-1.0) Estim Creat Clear Calc 134 ml/min Estimated GFR > 60 (59 - ) Glucose 123 H mg/dL (65-110) POC Capillary Glucose 109 H mg/dl (65-105) Calcium 8.9 mg/dL (8.4-10.2) Total Bilirubin 0.4 mg/dL (0.2-1.3) AST 26 U/L (14-36) ALT 20 U/L (6-35) Alkaline Phosphatase 127 H U/L (38-126) Total Protein 8.0 g/dL (6.3-8.2) Albumin 3.7 g/dL (3.5-5.1) HIV 1&2 Ab/P24 Ag 4thGn Negative (Negative) Blood Type A Positive Antibody Screen Pending Patient hx anesthesia problems: none Family hx anesthesia problems: none Results Review: All pre-operative results and documents have been reviewed as part of the pre-operative evaluation. [facility] Past Medical History Medical History (Updated 07/14/24 @ 06:54 by Eber Briones MD) Gestational diabetes Obesity History of pre-eclampsia Surgical History Surgical History (Updated 07/14/24 @ 06:54 by Eber Briones MD) History of section Family History Family History Mother Diabetes mellitus Social History Social History Smoking status: Never smoker Substance use: never Gender identity (if verbalized by the patient): Female Spiritual care concerns: No Anes - Eval Final PreProcedure Day of Procedure 07/14/24 06:53 Patient weight: obese Heart: regular rate and rhythm Lungs: clear to auscultation Airway: Mallampati scale class II Neurological: alert and oriented Last oral intake: >/= 8 hours ASA classification: III Emergent: no Anesthetic plan: proceed Anesthesia type and monitoring: regional spinal and standard monitoring Results Review: All pre-operative results and documents have been reviewed as part of the pre-operative evaluation. Informed Consent: The patient's anesthetic plan and its attendant risks and benefits were discussed with the patient/family/POA. Questions were solicited and answers provided to the satisfaction of the patient/family/POA.
--- NOTE | 2024-07-14 07:17 | WPDHPUPDATE1 ---
History and Physical Update Update Date/Time: 07/14/24 07:17 History and Physical has been reviewed, including an updated exam of the patient. There are NO changes in the patient's condition. Risks, benefits, and alternatives have been discussed and questions answered. Patient agrees to proceed with procedure.
--- NOTE | 2024-07-14 07:17 | PM.IMHP ---
H&P: HPI History of Present Illness Date/Time: 07/14/24 07:17 Chief Complaint: Intrauterine 39 1/7 Prior x2 Gestational diabetes insulin requiring Narrative: The patient is a 3 para 2 admitted at 39-,1/7 weeks for repeat section. The patient initially wished to have a tubal ligation however she has changed her mind and does not want this procedure. The has been complicated by early diagnosis in the 1st trimester of diabetes with a hemoglobin A1c of 5.9 and elevated to our GTT. The patient has been managed with diet and insulin. NSTs have been reactive and Accu-Cheks have been in the normal range. Patient with advanced maternal age therefore she was followed by [facility] with ultrasound for anatomy as well as growth. labs A-positive, rubella immune, RPR negative, hepatitis-B surface antigen negative, HIV negative, group B strep positive. Review of Systems Review of Systems: not repeated day of surgery; patient states no changes in status PMFSH Past Medical History Medical History (Updated 07/14/24 @ 07:22 by Hayley Joseph MD) Gestational diabetes Diagnosed at 12 weeks Obesity History of pre-eclampsia With 1 in 2012 Surgical History Surgical History (Updated 07/14/24 @ 07:22 by Hayley Joseph MD) History of section X2 Family History Family History Mother Diabetes mellitus Social History Social History Smoking status: Never smoker Substance use: never Gender identity (if verbalized by the patient): Female Spiritual care concerns: No Meds Home Medications and Allergies Home Medications ?Medication ?Instructions ?Recorded ?Confirmed ?Type insulin NPH isoph U-100 human 100 46 unit subcut QPM 06/20/24 06/20/24 History unit/mL subcutaneous suspension (Novolin N NPH U-100 Insulin isophane) vit no.95-ferrous 1 tablet PO DAILY 06/20/24 06/20/24 History fumarate 28 mg-folic acid 800 mcg tablet () Allergies Allergy/AdvReac Type Severity Reaction Status Date / Time No Known Allergies Allergy Verified 06/20/24 14:00 Vital Signs Vital Signs - 24 hr 07/14/24 05:18 07/14/24 05:19 07/14/24 05:23 Pulse Rate 109 H Blood Pressure 117/79 Pulse Oximetry 98 99 07/14/24 05:28 07/14/24 05:31 07/14/24 05:33 Pulse Rate 88 Blood Pressure 116/79 Pulse Oximetry 99 99 07/14/24 05:52 07/14/24 05:57 07/14/24 06:01 Pulse Rate 78 Blood Pressure 101/66 Pulse Oximetry 97 97 07/14/24 06:02 07/14/24 06:07 07/14/24 06:12 Pulse Rate Blood Pressure Pulse Oximetry 97 96 97 07/14/24 06:16 07/14/24 06:17 07/14/24 06:22 Pulse Rate 80 Blood Pressure 105/59 L Pulse Oximetry 100 98 07/14/24 06:27 07/14/24 06:31 07/14/24 06:32 Pulse Rate 75 Blood Pressure 111/72 Pulse Oximetry 97 98 07/14/24 06:37 07/14/24 06:42 07/14/24 06:46 Pulse Rate 85 Blood Pressure 131/101 H Pulse Oximetry 98 98 07/14/24 06:47 07/14/24 06:52 07/14/24 07:02 Pulse Rate 133 H Blood Pressure 107/63 Pulse Oximetry 98 98 Exam Const: General: comfortable and no acute distress Nutritional Appearance: other (Pre weight 177 current weight 180; height 4ft 8 inches) Orientation/consciousness: patient oriented x3 Resp: Effort & Inspection: normal respiratory effort Auscultation: clear to auscultation bilaterally Cardio: Rate: regular rate GI: GI Palp: Yes Soft to palpation, No Tenderness to palpation present (GI) and Yes Other GI palpation findings present (Fundal height 40cm) Auscultation: other ( heart tones reactive) : External Female Exam: normal external appearance Speculum Exam - Vagina: normal appearance of the vagina and normal vaginal discharge Speculum Exam - Cervix: normal appearance of the cervix Bimanual exam- vagina & uterus: consistency normal Bimanual Exam- Adnexa, other: normal adnexae and No adnexal tenderness Neuro: General: patient oriented x3 H&P: Results Labs Labs: Short CBC 07/14/24 Range/Units 05:33 WBC 5.2 (4.5-10.0) K/mm3 Hgb 10.8 L (12.0-15.0) g/dL Hct 33.7 L (37.0-47.0) % Plt Count 310 (150-375) k/mm3 BMP 07/14/24 05:33 Sodium 137 Potassium 4.1 Chloride 108 H Carbon Dioxide 18 L BUN 11 D Creatinine 0.46 L Glucose 123 H Calcium 8.9 Liver Function 07/14/24 Range/Units 05:33 Total Bilirubin 0.4 (0.2-1.3) mg/dL AST 26 (14-36) U/L ALT 20 (6-35) U/L Alkaline Phosphatase 127 H (38-126) U/L Albumin 3.7 (3.5-5.1) g/dL Assessment and Plan Assessment and plan (1) 39 weeks gestation of : Code(s): Z3A.39 - 39 weeks gestation of Status: Acute (2) GDM, class A2: Code(s): O24.419 - Gestational diabetes mellitus in , unspecified control Status: Acute (3) History of section: Code(s): Z98.891 - History of uterine scar from previous surgery Status: Acute Assessment and Plan: Plan to proceed with repeat section
[2024-07-14 07:18] LABS: Syphilis IgG/IgM Antibody Negative (Negative)
[2024-07-14] MEDS: ONDANSETRON INJ 4 MG/2 ML VIAL IV PUSH (07:19)
[2024-07-14] MEDS: FAMOTIDINE 20 MG/2 ML VIAL IV PUSH (07:19)
[2024-07-14] MEDS: ceFAZolin 2 GM/D5W 50 ML 2 GM/50 ML BAG IVPB (07:30)
--- NOTE | 2024-07-14 08:34 | P.PCNOB_ITS ---
OB - Delivery Note Procedure Delivery date: 07/14/24 Pre-op diagnosis: Gestational Diabetes (GDM A2 diagnosed 1st trimester), Previous Delivery (X2) and Other (39 weeks and 1 day) Post-op Diagnosis: Same Induction method: None Delivery monitor: External FHT and External Uterine Prior to decision for section, ACOG/SM labor guidelines were considered and discussed with the patient and staff. Decision made to proceed with the section.: Yes Procedure Performed: Repeat Secondary branch: low cervical, transverse Surgeon: Hayley Joseph MD Anesthesia type: Spinal Description of Procedure/Findings: The patient was taken to the operating room and placed under anesthesia in the dorsal supine position with leftward tilt. Once anesthesia was deemed adequate, she was prepped and draped in the usual sterile fashion. A Pfannenstiel skin incision was made with the scalpel through the prior incision and carried down to the fascia which was nicked in the midline. Fascial incision was extended laterally using Holley scissors. Extensive fascial adhesions were noted. The rectus muscles were grasped with Ochsner and the fascia is dissected off using sharp dissection due to adhesions. The rectus muscles are in the midline high in the incision with the Bovie cautery due to adhesions. The peritoneum was then tented with a Peon and entered with Holley scissors due to dense adhesions. The peritoneal incision was extended sound with blunt traction by its Bovie cautery was required at 3 and 9:00 due to dense bands of tissue. The bladder blade was then placed and the bladder flap appears in some places to be attached high on the uterus and in other places very low. The upper portions are dissected off using sharp dissection. The uterus is noted to be very thin. The lower uterine segment was incised in a transverse fashion with the scalpel. The incision was extended with blunt traction. The membranes are ruptured and clear fluid noted. The infant was brought up into the incision and the vertex guided through the incision while the dental front office assistant applied fundal pressure. The body followed quickly with normal maneuvers. The delayed cord clamping for 1minute was performed due to a vigorous . The cord was then clamped and cut the infant handed to the waiting pediatric team. The cord gases and cord blood were drawn and the placenta removed using manual traction. The uterus felt quite large and with the firm adhesions decision was made to leave the uterus and placed to close. The Elliot O retractor was placed and good visualization was noted of the lower uterine segment. The uterine incision was closed using 0 Monocryl in a running locked fashion with the same suture used to imbricate. Good hemostasis is noted. The gutters are irrigated. The bladder flap had several oozing areas 1 of which required 0 Monocryl for hemostasis and several areas were Bovie cauterized. Surgicel powder was placed over the bladder flap and the lower uterine segment due to the adhesions that were oozy throughout the case. The Elliot O retractor was then removed. The fascia was closed using 0 Vicryl in a running fashion. Subcutaneous tissues were irrigated and made hemostatic using Bovie cautery. Skin is closed using 4-0 Vicryl in a subcuticular fashion. Dermaflex was placed over the incision. Sponge, needle, and instrument counts are correct per the OR staff. Patient was given Ancef prior to incision. The very thin uterine segment was noted and discussed with the patient and her significant other. They do plan 1 additional child. It was recommended to plan a full early delivery due to the thin lower uterine segment at approximately 37 weeks. Risk of uterine rupture was briefly discussed and will be reviewed again tomorrow. It was also instructed that if the patient goes to a different physician that she inform them of the findings. The patient was taken to recovery in stable condition. Specimen: Yes (Placenta) Estimated Blood Loss: 235 Drains: Yes (Dawn catheter) Packing: No Complications: No immediate complications Condition: Stable Disposition: Floor Baby Date of : 07/14/24 Gestational Age by Date: 39 (05/03) Infant gender: Male Weight (pounds): 7 Weight (ounces): 3 presentation: vertex position: Right Occiput Anterior Placenta delivery description: Spontaneous Cord Vessel Description: 3 Vessels, Nuchal Cord and Delayed Cord Clamping score one minute: 8 score five minutes: 9
--- NOTE | 2024-07-14 08:42 | PM.OBDSVD ---
DS: Admitting Diagnosis Discharge Date 07/16/2024 <Eber Johnson MD - Last Filed: 07/16/24 08:03> Admitting Diagnosis Intrauterine at 39-,1/7 weeks Previous section x2 Gestational diabetes insulin requiring <Hayley Joseph MD - Last Filed: 07/14/24 08:44> DS: Discharge Diagnosis Discharge Diagnosis (1) Delivery by section using transverse incision of lower segment of uterus: Code(s): O82 - Encounter for delivery without indication <Hayley Joseph MD - Last Filed: 07/14/24 08:44> Status: Acute <Hayley Joseph MD - Last Filed: 07/14/24 08:44> Assessment and Plan: Very thin lower uterine segment future deliveries recommended early at approximately 37 weeks. <Hayley Joseph MD - Last Filed: 07/14/24 08:44> (2) GDM, class A2: Code(s): O24.419 - Gestational diabetes mellitus in , unspecified control <Hayley Joseph MD - Last Filed: 07/14/24 08:44> Status: Acute <Hayley Joseph MD - Last Filed: 07/14/24 08:44> OB - DS: Summary OB Procedures : None <Eber Johnson MD - Last Filed: 07/16/24 08:03> OB Procedures Intrapartum: Spontaneous Vag Delivery <Eber Johnson MD - Last Filed: 07/16/24 08:03> OB Procedures: : None <Eber Johnson MD - Last Filed: 07/16/24 08:03> Peripartum Data Procedures: Procedures Operation Date: 07/14/24 07:30 <No data on this case meets the specified criteria> <Hayley Joseph MD - Last Filed: 07/14/24 08:44> Time Spent with Patient Time attestation: Total time spent providing and/or coordinating discharge services: <Hayley Joseph MD - Last Filed: 07/14/24 08:44> DS: Data Data Completed and Pending Labs on day of discharge: Labs from last 24 hours 07/14/24 07/14/24 06:35 05:33 WBC 5.2 RBC 4.25 Hgb 10.8 L Hct 33.7 L MCV 79.3 L MCH 25.4 L MCHC 32.0 RDW 15.4 H Plt Count 310 MPV 12.0 H Immature Gran % (Auto) 0.4 Neut % (Auto) 46.3 Lymph % (Auto) 41.7 Atkinson % (Auto) 10.0 H Eos % (Auto) 1.2 Baso % (Auto) 0.4 Lymph # (Auto) 2.17 Atkinson # (Auto) 0.5 Eos # (Auto) 0.1 Baso # (Auto) 0.0 Abs Immat Gran (auto) 0.02 Absolute Neuts (auto) 2.4 Absolute Nucleated RBC 0.000 Nucleated RBC % 0.0 Sodium 137 Potassium 4.1 Chloride 108 H Carbon Dioxide 18 L Anion Gap 11 BUN 11 D Creatinine 0.46 L Estim Creat Clear Calc 134 Estimated GFR > 60 Glucose 123 H POC Capillary Glucose 109 H Calcium 8.9 Total Bilirubin 0.4 AST 26 ALT 20 Alkaline Phosphatase 127 H Total Protein 8.0 Albumin 3.7 Syphilis IgG/IgM Ab Negative HIV 1&2 Ab/P24 Ag 4thGn Negative Blood Type A Positive Antibody Screen Negative <Hayley Joseph MD - Last Filed: 07/14/24 08:44> Discharge Plan Discharge Attending physician on discharge: Hayley Joseph <Hayley Joseph MD - Last Filed: 07/14/24 08:44> Hayley Joseph <Eber Johnson MD - Last Filed: 07/16/24 08:03> Discharging Clinician: Eber Sandra <Hayley Joseph MD - Last Filed: 07/14/24 08:44> Eber Sandra <Eber Johnson MD - Last Filed: 07/16/24 08:03> Anticipated Discharge Date/Time: 07/17/24 08:43 <Hayley Joseph MD - Last Filed: 07/14/24 08:44> Patient Disposition: Home, Self-Care <Hayley Joseph MD - Last Filed: 07/14/24 08:44> Activity: may shower, may drive after 2 weeks and pelvic rest <Hayley Joseph MD - Last Filed: 07/14/24 08:44> may shower, may drive after 2 weeks and pelvic rest <Eber Johnson MD - Last Filed: 07/16/24 08:03> Diet: regular <Hayley Joseph MD - Last Filed: 07/14/24 08:44> regular <Eber Johnson MD - Last Filed: 07/16/24 08:03> Wound Care Instructions: incision open to air <Hayley Joseph MD - Last Filed: 07/14/24 08:44> incision open to air <Eber Johnson MD - Last Filed: 07/16/24 08:03> Patient Instructions: Antibiotic Form <Hayley Joseph MD - Last Filed: 07/14/24 08:44> Patient Language: Kuwaiti <Hayley Joseph MD - Last Filed: 07/14/24 08:44> Stand Alone Forms: General Discharge Information <Hayley Joseph MD - Last Filed: 07/14/24 08:44> Follow-up/Referrals: Hayley Joseph MD [Physician] - 1 Week (And 6 weeks) <Hayley Joseph MD - Last Filed: 07/14/24 08:44> Discharge Medications: Continued PNV cmb#95-ferrous fumarate-FA [] 28 mg iron- 800 mcg tablet 1 tablet PO DAILY Discontinued Novolin N NPH U-100 Insulin 100 unit/mL suspension 46 unit subcut QPM <Hayley Joseph MD - Last Filed: 07/14/24 08:44> Date of admission: 07/14/24 05:02 <Hayley Joseph MD - Last Filed: 07/14/24 08:44> Primary Care Provider: UNKNOWN,DOCTOR <Hayley Joseph MD - Last Filed: 07/14/24 08:44> Admitting Provider: Hayley Joseph <Hayley Joseph MD - Last Filed: 07/14/24 08:44> Attending physician on admission: Hayley Joseph <Hayley Joseph MD - Last Filed: 07/14/24 08:44> Condition: Stable <Hayley Joseph MD - Last Filed: 07/14/24 08:44>
[2024-07-14] MEDS: OXYTOCIN 30 UNITS/NS 500 ML 30 UNITS/500 ML BAG 125 UNITS IV CONT (09:56)
[2024-07-14] MEDS: SIMETHICONE 80 MG TAB.CHEW PO ×2 (12:13→17:34)
[2024-07-14] MEDS: KETOROLAC 15 MG/ML VIAL (*BKC) IV PUSH ×2 (12:13→18:34)
[2024-07-14] MEDS: MULTIVIT/MIN/PREN/FOL AC/IRON TABLET 1 TAB PO (12:14)
[2024-07-14] MEDS: DOCUSATE SODIUM 100 MG CAPSULE PO ×3 (12:14→17:36)
[2024-07-14] MEDS: ACETAMINOPHEN 325 MG TABLET 650 MG PO ×2 (12:14→18:35)
[2024-07-14] MEDS: LIDOCAINE 5% PATCH 1 PATCH TRANSDERM (12:19)
--- NOTE | 2024-07-14 14:02 | OBPPTRN ---
1058-Patient transferred to post room #284 via stretcher. Support person present. Oriented to unit, room, information board, rooming in, admission packet and security measures. Patient verbalizes understanding.
[2024-07-14] MEDS: DEXTROSE 5%/0.45% SOD CHL 1,000 ML 125 ML IV CONT (14:20)
--- NOTE | 2024-07-14 16:45 | PC.NURSE ---
Introductions were made and communication board updated. Consulted with patient to assess needs related to , mother plans to breastfeed and supplement infant until her milk has come in. She is able to latch infant independently. A latch was observed by this RN. Encouraged understanding of the benefits of skin to skin, stimulating with massage touch, changing positions to encourage wakefulness, how to watch for early feeding cues, responsive feeding, feeding on demand (aiming for 8-12 times in 24 hours, about every 2-3 hours), milk production, building/maintaining a milk supply, duration of feeding, signs of adequate intake/output and how to record on the feeding sheet. Reviewed positioning and ear, shoulder, hip alignment, supporting the breast to facilitate a deep latch, asymmetrical latch (off-center), leading with the chin with a big, open, wide gape and body close to mother. latched optimally to the [right] breast in [cradle] position. was [able] to maintain latch without pain to mother protecting the nipple with optimal positioning and latching. Reviewed comfort measures of healing with a warm, wet washcloth to rinse breast, then leave open to air-dry, good handwashing when or touching the breast/nipples to prevent infection. Mother voiced understanding of skin to skin, stimulating with massage touch, responsive feedings, hand expressed colostrum, talking to to encourage if it has been 2 -2.5 hours since the start of the last , to call if does not latch, or if there is discomfort with .
[2024-07-15] MEDS: ACETAMINOPHEN 325 MG TABLET 650 MG PO ×4 (00:37→23:08)
[2024-07-15] MEDS: KETOROLAC 15 MG/ML VIAL (*BKC) IV PUSH ×2 (00:37→10:37)
[2024-07-15 00:55] VITALS: BP 99/61; PULSE 100; RESP 16; TEMP 37.2; O2SAT 99
[2024-07-15 05:04] VITALS: BP 109/63; PULSE 91; RESP 16; TEMP 36.9; O2SAT 98
[2024-07-15 06:27] LABS: Basophils Percent Auto 0.3 % (0.2-1.2); Eosinophils Absolute Auto 0.1 K/mm3 (0-0.3); Eosinophils Percent Auto 0.8 % (0-4.4); Hematocrit 30.8 % (37.0-47.0); Hemoglobin 9.9 g/dL (12.0-15.0); Immature Granulocyte Absolute 0.03 K/mm3 (0.00-0.031); Immature Granulocyte Percent A 0.4 % (0-0.5); Lymphocytes Absolute Auto 1.79 K/mm3 (0.9-3.2); Lymphocytes Percent Auto 23.7 % (18.3-44.2); Mean Corpuscular HGB Conc 32.1 g/dl (32-36); Mean Corpuscular Hemoglobin 25.8 pg (26-34); Mean Corpuscular Volume 80.4 fl (80-100); Mean Platelet Volume 11.6 fl (7.4-10.4); Monocytes Absolute Auto 0.7 K/mm3 (0.1-0.6); Neutrophils Percent Auto 65.8 % (45.5-73.1); Platelet Count Result 244 k/mm3 (150-375); Red Blood Count 3.83 M/mm3 (4.2-5.4); Red Cell Distribution Width 15.4 % (11.5-14.5); White Blood Count 7.5 K/mm3 (4.5-10.0)
[2024-07-15 07:40] VITALS: BP 113/67; PULSE 95; RESP 16; TEMP 36.8; O2SAT 98
--- NOTE | 2024-07-15 09:00 | PC.NURSE ---
Met with mother regarding needs. She states that isn't eating much at the breast because he cries after suckling for a short time. She is supplementing with formula each feeding per her choice. Encouraged frequent practice at the breast if it is her intention to breastfeed at some feedings. Reviewed normal milk production and behavior immediately . She has a breast pump at home. Encouraged her to call for assistance with latch or any other questions or concerns.
[2024-07-15 10:00] VITALS: PULSE 95; RESP 16; O2SAT 98
[2024-07-15] MEDS: SIMETHICONE 80 MG TAB.CHEW PO ×3 (10:37→17:11)
[2024-07-15] MEDS: POLYSACCHARIDE IRON COMPLEX 150 MG CAPSULE PO ×2 (10:38→17:11)
[2024-07-15] MEDS: MULTIVIT/MIN/PREN/FOL AC/IRON TABLET 1 TAB PO (10:38)
[2024-07-15] MEDS: DOCUSATE SODIUM 100 MG CAPSULE PO ×2 (10:39→17:11)
--- NOTE | 2024-07-15 11:33 | P.PNOB_ITS ---
OB - PN: Subj Subjective Date/time seen: 07/15/24 11:33 Patient comments: no complaints and pain well controlled baby status: doing well OB - PN: Obj Data Labs 07/15/24 06:22 07/14/24 05:33 Labs: Laboratory Results - last 24 hr 07/15/24 06:22 WBC 7.5 RBC 3.83 L Hgb 9.9 L Hct 30.8 L MCV 80.4 MCH 25.8 L MCHC 32.1 RDW 15.4 H Plt Count 244 MPV 11.6 H Immature Gran % (Auto) 0.4 Neut % (Auto) 65.8 Lymph % (Auto) 23.7 Bureau % (Auto) 9.0 H Eos % (Auto) 0.8 Baso % (Auto) 0.3 Lymph # (Auto) 1.79 Bureau # (Auto) 0.7 H Eos # (Auto) 0.1 Baso # (Auto) 0.0 Abs Immat Gran (auto) 0.03 Absolute Neuts (auto) 5.0 Absolute Nucleated RBC 0.000 Nucleated RBC % 0.0 OB - PN A/P Plan day: 1 Plan: routine care Time Spent With Patient Time: Total time spent is greater than 50% in coordination of care (as documented) at patient's floor/unit and/or counseling patient: Exam 2 Narrative: inc c/d/i : Bimanual exam- vagina & uterus: other (Uterus firm, nt @U)
[2024-07-15] MEDS: LIDOCAINE 5% PATCH 1 PATCH TRANSDERM (14:02)
--- NOTE | 2024-07-15 15:49 | WPDANLDPN2 ---
Anes-Prog Note L&D Date/Time: 07/15/24 15:49 Comfortable throughout: section Neuraxial method: spinal Epidural/Spinal procedure site: clean & non-tender Neuro status: Neuro function grossly intact. Cardiovascular status: normal Respiratory status: normal Airway patency: baseline Mental status: baseline Post-Op hydration status: normal Vital Signs: Last Vital Signs Temp 36.8 C 07/15/24 07:40 Pulse 95 07/15/24 10:00 Resp 16 07/15/24 10:00 BP 113/67 07/15/24 07:40 Pulse Ox 98 07/15/24 10:00 O2 Del Method Room Air 07/15/24 10:00 Pain score (VAS): 2 I/O: Intake & Output 07/14/24 07/15/24 07/15/24 23:59 07:59 15:59 Intake Total 1156.3 1400 Output Total 350 1550 Balance 806.3 -150 Post-procedural complaints: none Patient feedback: Patient satisfied with anesthetic care.
--- NOTE | 2024-07-15 15:50 | WPDANLDNPN2 ---
Anes-Prog Note L&D-Neuraxial Date/Time: 07/15/24 15:50 Neuraxial medications: intrathecal PF morphine Opiod-related complaints: none Patient feedback: Patient satisfied with post-operative pain management.
[2024-07-15] MEDS: IBUPROFEN 600 MG TABLET PO ×2 (17:11→23:09)
[2024-07-15 20:00] VITALS: BP 126/70; PULSE 84; RESP 16; TEMP 37.1; O2SAT 98
[2024-07-15 23:11] VITALS: BP 101/58; PULSE 70; RESP 16; TEMP 36.6; O2SAT 99
[2024-07-16] MEDS: IBUPROFEN 600 MG TABLET PO (04:25)
[2024-07-16] MEDS: ACETAMINOPHEN 325 MG TABLET 650 MG PO (04:25)
[2024-07-16 04:32] VITALS: BP 115/68; PULSE 72; RESP 16; TEMP 36.7; O2SAT 99
--- NOTE | 2024-07-16 08:03 | PM.OBPNVD ---
OB - PN: Subj Subjective Date/time seen: 07/16/24 08:03 Patient comments: no complaints, pain well controlled and tolerating diet [place] baby status: doing well OB - PN: Obj Data Labs 07/15/24 06:22 07/14/24 05:33 OB - PN A/P Assessment and Plan (1) GDM, class A2: Code(s): O24.419 - Gestational diabetes mellitus in , unspecified control Status: Acute (2) 39 weeks gestation of : Code(s): Z3A.39 - 39 weeks gestation of Status: Acute (3) History of section: Code(s): Z98.891 - History of uterine scar from previous surgery Status: Acute (4) Delivery by section using transverse incision of lower segment of uterus: Code(s): O82 - Encounter for delivery without indication Status: Acute Plan home Time Spent With Patient Time: Total time spent is greater than 50% in coordination of care (as documented) at patient's floor/unit and/or counseling patient: Review of Systems Review of Systems: not repeated day of surgery; patient states no changes in status Exam Const: General: cooperative, healthy appearing and comfortable Nutritional Appearance: overweight Orientation/consciousness: oriented to person, oriented to place and oriented to time HENMT: Head: normal to inspection Resp: Effort & Inspection: normal respiratory effort GI: Inspection: normal to inspection
[2024-07-16 08:15] VITALS: BP 113/88; PULSE 79; RESP 16; TEMP 36.7; O2SAT 100
[2024-07-16] MEDS: MULTIVIT/MIN/PREN/FOL AC/IRON TABLET 1 TAB PO (08:18)
[2024-07-16] MEDS: SIMETHICONE 80 MG TAB.CHEW PO (08:18)
[2024-07-16] MEDS: POLYSACCHARIDE IRON COMPLEX 150 MG CAPSULE PO (08:18)
[2024-07-16] MEDS: DOCUSATE SODIUM 100 MG CAPSULE PO (08:18)
--- NOTE | 2024-07-16 09:00 | PC.NURSE ---
Consulted with mother concerning /pumping needs. Reinforced understanding of milk production, transition of milk, signs of adequate intake, transition of stool, prevention/relief of engorgement, plugged ducts, mastitis, community resources ([facility] referral sent to [place] and she has a breast pump at home), and when to call a provider using the resource of the feeding sheet along with the mom and baby guide. Mother voiced understanding of the information shared, is confident to continue effectively /pumping at home, when to call for assistance, denies any additional assistance or education at this time. Reported to the Primary RN.
[2024-07-18 09:16] VITALS: BP 128/77; PULSE 85; RESP 16; TEMP 36.7; O2SAT 99
== END 2024-07-16 09:30 | disposition home or self-care (01) | DRG 540 ==
LOC: ANHLDR 05:06 → ANHOB2 11:16
PROVIDERS: Admitting Provider Obstetrics & Gynecology Gynecology; Visit Provider Obstetrics & Gynecology Gynecology
PROC: 10D00Z1 Extraction of Products of Conception, Low, Open Approach (ICD-10-PCS; CPT 59514; principal; 2024-07-14 07:30)
DX: O34.211 Maternal care for low transverse scar from previous cesarean delivery (principal); Z37.0 Single live birth; Z3A.39 39 weeks gestation of pregnancy; O24.424 Gestational diabetes mellitus in childbirth, insulin controlled
CPT/HCPCS: 36415; 80053; 82948; 85025; 86593; 86703; 86850; 86900; 86901; 88307; A9270; G0432; J0690; J1596; J1885; J2274; J2371; J2405; J2590; J7120